=== PATIENT | female | born 1985 | race Caucasian/White ===

== ENCOUNTER 2018-04-05 09:42 | Emergency (ER) | payer MEDICAID, SELFPAY, OTHER ==
[2018-04-05] MEDS: NS 1,000 ML IV ×2 (10:11→11:32)
[2018-04-05 11:07] LABS: BASO % 0.2 % (0.0-1.0); EOS % 0.2 % (0.0-3.0); HEMATOCRIT 38.6 % (36.0-47.0); HEMOGLOBIN 13.5 g/dl (12.0-15.5); IMMATURE GRANULOCYTE % 0.4 % (0-3.0); LYMPH # 1.5 10^3/uL (1.5-4.5); LYMPH % 17.4 % (24.0-44.0); MEAN CORPUSCULAR HEMOGLOBIN 31.2 pg (27.0-33.0); MEAN CORPUSCULAR VOLUME 89.1 fl (80.0-96.0); MONO # 0.4 10^3/uL (0.0-0.8); MONO % 4.7 % (0.0-5.0); NEUTROPHILS # 6.5 10^3/uL (1.8-7.7); NEUTROPHILS % 77.1 % (36.0-66.0); PLATELET COUNT, AUTOMATED 235 10^3/uL (150-450); RED BLOOD COUNT 4.33 10^6/uL (4.00-5.40); RED CELL DISTRIBUTION WIDTH 12.3 % (11.5-14.5); WHITE BLOOD COUNT 8.5 10^3/uL (4.0-10.0)
[2018-04-05 11:10] LABS: CONTROL LINE HCG INT CTR LINE PRESENT; HCG, SERUM QUALITATIVE NEGATIVE (NEGATIVE)
[2018-04-05 11:19] LABS: ALBUMIN 4.1 GM/DL (3.2-5.2); ALBUMIN/GLOBULIN RATIO 1.05 (1.00-1.93); ALKALINE PHOSPHATASE 108 U/L (45-117); ALT/SGPT 24 U/L (12-78); ANION GAP 10 MEQ/L (8-16); AST/SGOT 15 U/L (7-37); BILIRUBIN,DIRECT 0.1 MG/DL (0.0-0.2); BILIRUBIN,TOTAL 0.7 MG/DL (0.2-1.0); BLOOD UREA NITROGEN 12 MG/DL (7-18); CARBON DIOXIDE LEVEL 22 MEQ/L (21-32); CHLORIDE LEVEL 111 MEQ/L (98-107); CREATININE FOR GFR 0.79 MG/DL (0.55-1.30); GLOMERULAR FILTRATION RATE > 60.0 (>60); GLUCOSE, FASTING 125 MG/DL (70-100); LIPASE 101 U/L (73-393); POTASSIUM SERUM 3.4 MEQ/L (3.5-5.1); SODIUM LEVEL 143 MEQ/L (136-145)
[2018-04-05] MEDS: ONDANSETRON 4MG/2ML VIAL (J2405) IV ×2 (11:30→11:31)
[2018-04-05] MEDS ORDERED: ISOVUE-370 76% 100ML VIAL (Q9967) As Ordered (11:37)
== END 2018-04-05 11:47 | disposition left against medical advice (07) ==
LOC: M ED 09:42
DX: R11.2 Nausea with vomiting, unspecified (principal); R19.7 Diarrhea, unspecified; F33.9 Major depressive disorder, recurrent, unspecified; Z79.899 Other long term (current) drug therapy
CPT/HCPCS: 83690

== ENCOUNTER → 2020-11-23 | Outpatient (REF) | payer OTHER ==
[~2020-11-23] MED LIST: ADVI200T PO; CELE10TA PO; CITA20TA6 PO; HYDR-3715 PO; ZOFR4SOL PO
== END ==
LOC: M LAB REF 11:31
PROVIDERS: ATTEND Surgery
DX: U07.1 COVID-19 (principal)

== ENCOUNTER 2020-12-21 19:07 | Inpatient (IN) | payer OTHER ==
[~2020-12-21] VITALS: Ht 167.6 cm; Wt 54.5 kg
[2020-12-21] MEDS ORDERED: NS 1,000 ML IV ONE (20:45)
[2020-12-21 21:29] LABS: BASO # 0.1 10^3/uL (0.0-0.2); BASO % 0.4 % (0.0-1.0); EOS # 0.1 10^3/uL (0.0-0.5); EOS % 0.6 % (0.0-3.0); HEMATOCRIT 33.1 % (36.0-47.0); HEMOGLOBIN 11.2 g/dl (12.0-15.5); LYMPH # 1.1 10^3/uL (1.5-5.0); LYMPH % 9.2 % (24.0-44.0); MEAN CORPUSCULAR HEMOGLOBIN 29.5 pg (27.0-33.0); MEAN CORPUSCULAR HGB CONC 33.8 g/dl (32.0-36.5); MEAN CORPUSCULAR VOLUME 87.1 fl (80.0-96.0); MONO % 8.1 % (2.0-8.0); NEUTROPHILS % 80.9 % (36.0-66.0); PLATELET COUNT, AUTOMATED 324 10^3/uL (150-450); WHITE BLOOD COUNT 12.3 10^3/uL (4.0-10.0)
[2020-12-21 21:47] LABS: ERYTHROCYTE SEDIMENTATION RATE 70 mm/hr (0-20)
[2020-12-21] MEDS ORDERED: VANCOMYCIN HCL 1,000 MG in IV FLUID PLACE HOLDER 1 EA IV ONE (21:50)
[2020-12-21] MEDS ORDERED: VANCOMYCIN HCL 1,000 MG, VIAL MATE ADAPTER 1 EACH in NS 250 ML IV ONE (22:00)
[2020-12-21 22:04] LABS: ALBUMIN 2.5 GM/DL (3.2-5.2); BILIRUBIN,DIRECT 0.2 MG/DL (0.0-0.2); BILIRUBIN,TOTAL 0.3 MG/DL (0.2-1.0); C REACTIVE PROTEIN QUANTITATIV 10.8 MG/DL (0.00-0.30); TOTAL PROTEIN 6.4 GM/DL (6.4-8.2)
--- NOTE | 2020-12-21 22:13 | REPVR ---
PROCEDURE INFORMATION: Exam: US Duplex Right Lower Extremity Veins, Limited Exam date and time: 12/21/2020 9:32 PM Age: 35 years old Clinical indication: Pain; Edema, localized and swelling (edema) of limb; Lower extremity, right; Leg, upper and leg, lower; Additional info: Cellulitis, swelling TECHNIQUE: Imaging protocol: Real-time Duplex ultrasound of the Right Lower Extremity with 2-D souza scale, color Doppler flow and spectral waveform analysis with image documentation. Limited exam was focused on the right lower extremity veins. COMPARISON: No relevant prior studies available. FINDINGS: Right deep veins: Unremarkable. The common femoral, femoral and popliteal veins are patent without thrombus. Normal Doppler waveforms. Normal compressibility and/or augmentation response. Right superficial veins: Unremarkable. Saphenofemoral junction is patent without thrombus. Soft tissues: Mild subcutaneous edema. IMPRESSION: No sonographic evidence of deep vein thrombosis. Electronically signed by: Eric Lovelace On 12/21/2020 22:13:41 PM
--- NOTE | 2020-12-21 22:19 | REPVR ---
PROCEDURE INFORMATION: Exam: US Right Non-Vascular Joint or Other Extremity Structure Exam date and time: 12/21/2020 9:15 PM Age: 35 years old Clinical indication: Pain; Lower leg; Right; Additional info: Cellulitis/ abscess TECHNIQUE: Imaging protocol: Right US joint or other nonvascular extremity structure or structures. Real-time ultrasound with image documentation. Limited study. Exam focused on the lower extremity in the region of clinical interest. COMPARISON: No relevant prior studies available. FINDINGS: Soft tissues: Severe, diffuse soft tissue swelling and subcutaneous edema. Approximately 2.1 x 0.6 x 0.8 cm loculated, complex subcutaneous collection along the medial aspect of the calf, apparently communicating with the skin surface. Mild associated hyperemia. IMPRESSION: Severe cellulitis with associated abscess formation, as described above. Electronically signed by: Eric Lovelace On 12/21/2020 22:19:17 PM
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
[2020-12-21] MEDS ORDERED: MAALOX 30 ML SUSP *UDC PO PRN (23:45)
[2020-12-21] MEDS ORDERED: ACETAMINOPHEN TAB 650MG DOSE (2X325MG) PO PRN (23:45)
[2020-12-21] MEDS ORDERED: MOM 30ML SUSPENSION UDC PO PRN (23:45)
[2020-12-21 23:52] LABS: AMPHETAMINES LEVEL URINE POSITIVE (NEGATIVE); BARBITURATES URINE NEGATIVE (NEGATIVE); BENZODIAZEPINES URINE NEGATIVE (NEGATIVE); CANNABINOIDS URINE NEGATIVE (NEGATIVE); COCAINE METABOLITE URINE NEGATIVE (NEGATIVE); METHADONE URINE NEGATIVE (NEGATIVE); OPIATES URINE POSITIVE (NEGATIVE); PHENCYCLIDINE URINE NEGATIVE (NEGATIVE)
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
[2020-12-22 01:04] LABS: RSV AMPLIFICATION NEGATIVE (NEGATIVE)
[2020-12-22] MEDS: HEPARIN SOD (PORCINE) 5000UNITS/ML 1ML VIAL/SYRINGE SC SCH ×3 (02:44→16:00)
[2020-12-22 03:22] VITALS: BP 121/84
[2020-12-22] MEDS: VANCOMYCIN HCL 750 MG, VIAL MATE ADAPTER 1 EACH in NS 250 ML IV SCH ×3 (05:42→21:47)
[2020-12-22 06:00] VITALS: BP 108/63
[2020-12-22 07:19] LABS: BASO % 0.4 % (0.0-1.0); EOS # 0.1 10^3/uL (0.0-0.5); EOS % 1.6 % (0.0-3.0); HEMATOCRIT 29.6 % (36.0-47.0); HEMOGLOBIN 9.9 g/dl (12.0-15.5); LYMPH # 1.4 10^3/uL (1.5-5.0); LYMPH % 16.6 % (24.0-44.0); MEAN CORPUSCULAR HEMOGLOBIN 29.7 pg (27.0-33.0); MEAN CORPUSCULAR HGB CONC 33.4 g/dl (32.0-36.5); MEAN CORPUSCULAR VOLUME 88.9 fl (80.0-96.0); MONO # 0.7 10^3/uL (0.0-0.8); MONO % 8.5 % (2.0-8.0); NEUTROPHILS # 5.9 10^3/uL (1.5-8.5); NEUTROPHILS % 72.3 % (36.0-66.0); PLATELET COUNT, AUTOMATED 265 10^3/uL (150-450); RED BLOOD COUNT 3.33 10^6/uL (4.00-5.40); WHITE BLOOD COUNT 8.1 10^3/uL (4.0-10.0)
[2020-12-22 07:43] LABS: ALBUMIN 2.1 GM/DL (3.2-5.2); ALT/SGPT 49 U/L (12-78); BILIRUBIN,TOTAL 0.2 MG/DL (0.2-1.0); BLOOD UREA NITROGEN 3 MG/DL (7-18); CALCIUM LEVEL 7.8 MG/DL (8.5-10.1); CARBON DIOXIDE LEVEL 27 MEQ/L (21-32); CHLORIDE LEVEL 104 MEQ/L (98-107); CREATININE FOR GFR 0.43 MG/DL (0.55-1.30); GLOMERULAR FILTRATION RATE > 60.0 (>60); GLUCOSE, FASTING 101 MG/DL (70-100); MAGNESIUM LEVEL 2.2 MG/DL (1.8-2.4); POTASSIUM SERUM 3.7 MEQ/L (3.5-5.1); SODIUM LEVEL 138 MEQ/L (136-145)
[2020-12-22 07:44] LABS: PERCENT SATURATION 7.7 % (13.2-45.0)
--- NOTE | 2020-12-22 08:05 | REP ---
INDICATION: swelling, site of IV drug injection. COMPARISON: None. TECHNIQUE: There are four views. FINDINGS: There is soft tissue edema over the dorsum. There is no radiopaque foreign body, calcification, fracture or dislocation. Mineralization and joint spaces otherwise are unremarkable. IMPRESSION: Soft tissue edema over the dorsum. Otherwise, negative right hand. <Electronically signed by Wilber Cyr > 12/22/20 0801
[2020-12-22 08:11] LABS: C REACTIVE PROTEIN QUANTITATIV 9.75 MG/DL (0.00-0.30)
[2020-12-22] MEDS: DOCUSATE SODIUM 100MG CAPSULE PO SCH ×2 (08:47→21:47)
[2020-12-22 14:00] VITALS: BP 109/63
--- NOTE | 2020-12-22 14:55 | IPNPDOC ---
Text Note Date of Service The patient was seen on 12/22/20. NOTE Subjective: Patient somnolent in the morning, I was not able to interview the patient Objective: GENERAL APPEARANCE: Somnolent female HEENT: no scleral icterus, no JVD, EOMI CARDIOVASCULAR: S1S2 LUNGS: CTA ABDOMEN: soft & not tender w palpitation MUSCULOSKELETAL: no cyanosis, +2 right leg nonpitting edema with erythema from the foot to proximal part of the tibia INTEGUMENT: Seborrheic keratosis on the face and scalp, multiple skin needle trace NEUROLOGICAL: cranial nerve function from 2-12 intact intact, follows commands, speech not dysarthric Assessment and plan Patient is 35 yo F with a hx polysubstance abuse, depression, anxiety, bipolar disorder, admitted to hospitalist service for management of R leg cellulitis with loculated collection 2/2 subcutaneous drug injection. Purulent Right leg cellulitis/abscess Ultrasound showed Severe cellulitis with associated abscess formation Surgical team will proceed with incision and drainage Wound culture showed gram-positive cocci in pairs and clusters, await blood culture Continue vancomycin IV Leukocytosis resolved Sedimentation rate of 70 R hand swelling, dorsum site of injection X-ray showed Soft tissue edema over the dorsum. Otherwise, negative right hand. Normocytic anemia Most likely secondary to anemia of chronic diseases Iron of 18, will give iron supplementation B12, folate pending Polysubstance abuse Social service Await hepatitis panel. HIV screen VS,Jacquie, I+O VS, Jacquie, I+O Laboratory Tests 12/21/20 21:03 12/22/20 07:06 Vital Signs Date Time Temp Pulse Resp B/P (MAP) Pulse Ox O2 Delivery O2 Flow Rate FiO2 12/22/20 06:00 97.8 103 18 108/63 (78) 98 Room Air I&O- Last 24 Hours up to 6 AM 12/22/20 05:59 Intake Total 1270 ml Output Total 0 ml Balance 1270 ml LEEROY ROGERS DO Dec 22, 2020 14:55
[2020-12-22] MEDS: IRON POLYSAC (NIFEREX) 150 MG CAP PO SCH (16:10)
[2020-12-22] MEDS ORDERED: EPINEPHrine INJ 1 MG/ML 1ML AMP As Ordered ONE (19:35)
[2020-12-22] MEDS ORDERED: LIDOCAINE 1% MDV 20ML VIAL As Ordered ONE (19:35)
[2020-12-22 22:00] VITALS: BP 106/63
[2020-12-23] MEDS: VANCOMYCIN HCL 750 MG, VIAL MATE ADAPTER 1 EACH in NS 250 ML IV SCH (05:28)
[2020-12-23 06:00] VITALS: BP 112/72
[2020-12-23 06:24] LABS: BASO % 0.6 % (0.0-1.0); EOS # 0.2 10^3/uL (0.0-0.5); EOS % 2.3 % (0.0-3.0); HEMOGLOBIN 9.6 g/dl (12.0-15.5); LYMPH # 1.8 10^3/uL (1.5-5.0); LYMPH % 25.1 % (24.0-44.0); MEAN CORPUSCULAR HEMOGLOBIN 29.4 pg (27.0-33.0); MONO # 0.6 10^3/uL (0.0-0.8); MONO % 8.4 % (2.0-8.0); NEUTROPHILS # 4.5 10^3/uL (1.5-8.5); NEUTROPHILS % 62.6 % (36.0-66.0); PLATELET COUNT, AUTOMATED 294 10^3/uL (150-450); RED BLOOD COUNT 3.26 10^6/uL (4.00-5.40); WHITE BLOOD COUNT 7.3 10^3/uL (4.0-10.0)
[2020-12-23 06:55] LABS: ALT/SGPT 48 U/L (12-78); BILIRUBIN,TOTAL 0.1 MG/DL (0.2-1.0); BLOOD UREA NITROGEN 7 MG/DL (7-18); CALCIUM LEVEL 8.1 MG/DL (8.5-10.1); CARBON DIOXIDE LEVEL 27 MEQ/L (21-32); CHLORIDE LEVEL 106 MEQ/L (98-107); CREATININE FOR GFR 0.47 MG/DL (0.55-1.30); GLOMERULAR FILTRATION RATE > 60.0 (>60); GLUCOSE, FASTING 95 MG/DL (70-100); MAGNESIUM LEVEL 1.9 MG/DL (1.8-2.4); POTASSIUM SERUM 4.1 MEQ/L (3.5-5.1); SODIUM LEVEL 139 MEQ/L (136-145); TOTAL PROTEIN 5.6 GM/DL (6.4-8.2)
[2020-12-23] MEDS: HEPARIN SOD (PORCINE) 5000UNITS/ML 1ML VIAL/SYRINGE SC SCH ×2 (08:00)
[2020-12-23] MEDS: IRON POLYSAC (NIFEREX) 150 MG CAP PO SCH (09:00)
[2020-12-23] MEDS: DOCUSATE SODIUM 100MG CAPSULE PO SCH (09:00)
[2020-12-23] MEDS ORDERED: LORazepam 1 MG TAB PO PRN (10:05)
--- NOTE | 2020-12-23 10:53 | ROOPDOC ---
[facility] Report Of Operation Report of Operation DATE OF PROCEDURE: 12/22/20 PREPROCEDURE DIAGNOSES: right medial calf/lower leg abscess . POSTPROCEDURE DIAGNOSES: Same. PROCEDURE: Incision and drainage right lower leg abscess. SURGEON: Jerad Parmar MD CORRESPONDENCE DICTATOR: ANESTHESIA: local anesthesia. ESTIMATED BLOOD LOSS: Approximately 10 mL. COMPLICATIONS: none. REMARKS: 35-year-old female who has been injecting heroin on her lower leg admitted for extensive cellulitis and right leg swelling with a focus of induration and abscess on the right medial calf area where she was injecting heroin.. PROCEDURE NOTE: Bedside incision and drainage was performed. This small pocket of abscess. 1/2 inch plain packing placed.. DESCRIPTION OF PROCEDURE: . JERAD PARMAR MD Dec 23, 2020 10:53
--- NOTE | 2020-12-23 10:54 | CR.PDOC ---
General Surgery Consultation Date of Consultation 12/22/20 History and Physical CONSULT REPORT FOR: hospitalist service REASON FOR CONSULTATION: leg abscess HISTORY OF PRESENT ILLNESS: PAST MEDICAL HISTORY: 1. . PAST SURGICAL HISTORY: INCLUDES: 1. . PREVIOUS ANESTHESIA REACTIONS: ALLERGIES: Please see below. FAMILY HISTORY: . HOME MEDICATIONS: Please see below. REVIEW OF SYSTEMS: GENERAL: [Denies chills, reports weight gain, reports feeling febrile yesterday]. HEENT: [Denies blurred vision and double vision. Denies ear symptoms. Denies hoarseness]. NECK: Denies any neck pain]. CARDIOVASCULAR: [Denies chest pain and palpitations]. MUSCULOSKELETAL: [Denies arthralgias, back pain and thrombophlebitis]. SKIN: [Denies rash]. NEUROLOGIC: [Denies headache, stroke and transient ischemic attack]. PSYCHIATRIC: [Denies anxiety and depression]. ENDOCRINE: [Denies thyroid disease]. HEMATOLOGY/ONCOLOGY: [Denies bleeding or clotting disorder]. HEART: [Denies any chest pains, palpitations, paroxysmal dyspnea, orthopnea]. PULMONARY: [Denies chronic cough, dyspnea and wheezing]. GASTROINTESTINAL: [Denies rectal bleeding, family history of colon cancer, constipation, diarrhea, dysphagia, heartburn and jaundice]. GENITOURINARY: [Denies dysuria, frequency, hematuria and nocturia]. ENDOCRINE: [Denies polydipsia, polyphagia, polyuria, heat or cold intolerance]. INFECTIOUS: [Denies any recent upper respiratory tract infection, UTI, need for use of antibiotics]. NUTRITION: [Reports good appetite]. PHYSICAL EXAMINATION: VITALS SIGNS: Please see below. GENERAL APPEARANCE:[Patient seen, laying in bed, awake, alert, and oriented. Comfortable, in no acute distress]. SKIN: [Warm and moist]. HEENT: [Normocephalic, atraumatic. [place] palpebral conjunctiva, anicteric sclerae. Lips and mucosa appear moist]. NECK: [Supple, no thyromegaly. No obvious jugular venous distention]. LUNGS: [Clear to auscultation bilaterally. No wheezing appreciated]. HEART: [No chest wall abnormalities. Regular rate and rhythm with no murmurs appreciated]. ABDOMEN: Abdomen is , soft, . [No hepatosplenomegaly. No umbilical or groin herniations, nondistended. No noticeable rebound or guarding. No grimacing with palpation. No rebound tenderness. No masses appreciated]. EXTREMITIES: [Extremities have no deformities. No edema identified] ANCILLARIES: . LABORATORY DATA: Please see below. IMAGING STUDIES: . IMPRESSION AND PLAN: Right lower leg abscess I&D performed at the bedside.. Vital Signs Vital Signs Date Time Temp Pulse Resp B/P (MAP) Pulse Ox O2 Delivery O2 Flow Rate FiO2 12/23/20 06:00 97.4 87 16 112/72 (85) 100 Room Air I&Os I&O- Last 24 Hours up to 6 AM 12/23/20 06:00 Intake Total 1945 ml Output Total 1300 ml Balance 645 ml Laboratory Data Labs 24H Laboratory Tests 2 12/22/20 12:46: Vancomycin Level Trough 10.0 12/23/20 05:21: Immature Granulocyte % (Auto) 1.0, Neutrophils (%) (Auto) 62.6, Lymphocytes (%) (Auto) 25.1, Monocytes (%) (Auto) 8.4H, Eosinophils (%) (Auto) 2.3, Basophils (%) (Auto) 0.6, Neutrophils # (Auto) 4.5, Lymphocytes # (Auto) 1.8, Monocytes # (Auto) 0.6, Eosinophils # (Auto) 0.2, Basophils # (Auto) 0.0, Nucleated Red Blood Cells % (auto) 0.0, Anion Gap 6L, Glomerular Filtration Rate > 60.0, Calcium Level 8.1L, Magnesium Level 1.9, Total Bilirubin 0.1L, Aspartate Amino Transf (AST/SGOT) 61H, Alanine Aminotransferase (ALT/SGPT) 48, Alkaline Phosphatase 102, Total Protein 5.6L, Albumin 2.0L, Albumin/Globulin Ratio 0.6L 12/23/20 05:30: Methicillin-Resist S.aureus DNA PCR DETECTEDA CBC/BMP Laboratory Tests 12/23/20 05:21 Microbiology Microbiology 12/21/20 Blood Culture - Preliminary, Resulted No growth after 24 hours . All specim... 12/21/20 Blood Culture - Preliminary, Resulted No growth after 24 hours . All specim... 12/21/20 Gram Stain - Final, Resulted 12/21/20 Wound Culture - Preliminary, Resulted Streptococcus Pyogenes Grp A Staphylococcus Aureus Home Medications No Active Prescriptions or Reported Meds Allergies Coded Allergies: No Known Allergies (Unverified , 12/21/20) RAGHU ROSS MD Dec 23, 2020 10:54
--- NOTE | 2020-12-23 10:56 | IPNPDOC ---
Text Note Date of Service The patient was seen on 12/23/20. NOTE I rechecked on the patient's wounds today. Remove her dressings. There is puru lent fluid freely draining from the opening now. This seems to be more superior and lateral where it is coming off from. There is much better improvement of the swelling and the erythema has markedly proceeded. There is still considerable swelling on the foot and ankle but the leg swelling has also improved. Plan Continue leg elevation. Light packing to the opening change daily. Can go home when stable. VS,Fishbone, I+O VS, Fishbone, I+O Laboratory Tests 12/23/20 05:21 Vital Signs Date Time Temp Pulse Resp B/P (MAP) Pulse Ox O2 Delivery O2 Flow Rate FiO2 12/23/20 06:00 97.4 87 16 112/72 (85) 100 Room Air I&O- Last 24 Hours up to 6 AM 12/23/20 06:00 Intake Total 1945 ml Output Total 1300 ml Balance 645 ml RAGHU ROSS MD Dec 23, 2020 10:55
[2020-12-23] MEDS ORDERED: DOXY100C PO (13:47)
--- NOTE | 2020-12-23 14:03 | DS.PDOC ---
Discharge Summary General Date of Admission Dec 21, 2020 at 23:44 Date of Discharge 12/23/20 Discharge Summary PROCEDURES PERFORMED DURING STAY: [None]. ADMITTING DIAGNOSES: Purulent Right leg cellulitis/abscess R hand swelling, dorsum Normocytic anemia Polysubstance abuse DISCHARGE DIAGNOSES: Purulent Right leg cellulitis/abscess R hand swelling, dorsum Normocytic anemia Polysubstance abuse COMPLICATIONS/CHIEF COMPLAINT: Abscess Of Leg,Cellulitis,Hyponatremia. HISTORY OF PRESENT ILLNESS: Patient is 35 yo F with a hx polysubstance abuse, de pression, anxiety, bipolar disorder, admitted to hospitalist service for management of R leg cellulitis with loculated collection 2/2 subcutaneous drug injection. HOSPITAL COURSE: Patient left the hospital AMA today DISCHARGE MEDICATIONS: Please see below. ALLERGIES: Please see below. PHYSICAL EXAMINATION ON DISCHARGE: VITAL SIGNS: Please see below. GENERAL: HEENT: NECK: CARDIOVASCULAR EXAMINATION: RESPIRATORY EXAMINATION: ABDOMINAL EXAMINATION: EXTREMITIES: SKIN: NEUROLOGICAL EXAMINATION: PSYCHIATRIC EXAMINATION: LABORATORY DATA: Please see below. IMAGING: PROGNOSIS: ACTIVITY: [As tolerated]. DIET: DISCHARGE PLAN: DISPOSITION: Against Medical Advice. DISCHARGE INSTRUCTIONS: 1. . ITEMS TO FOLLOWUP ON ON OUTPATIENT: 1. . DISCHARGE CONDITION: [Stable]. TIME SPENT ON DISCHARGE: Greater than minutes. Vital Signs/I&Os Vital Signs Date Time Temp Pulse Resp B/P (MAP) Pulse Ox O2 Delivery O2 Flow Rate FiO2 12/23/20 06:00 97.4 87 16 112/72 (85) 100 Room Air I&O- Last 24 Hours up to 6 AM 12/23/20 06:00 Intake Total 1945 ml Output Total 1300 ml Balance 645 ml Laboratory Data Labs 24H Laboratory Tests 2 12/23/20 05:21: Immature Granulocyte % (Auto) 1.0, Neutrophils (%) (Auto) 62.6, Lymphocytes (%) (Auto) 25.1, Monocytes (%) (Auto) 8.4H, Eosinophils (%) (Auto) 2.3, Basophils (%) (Auto) 0.6, Neutrophils # (Auto) 4.5, Lymphocytes # (Auto) 1.8, Monocytes # (Auto) 0.6, Eosinophils # (Auto) 0.2, Basophils # (Auto) 0.0, Nucleated Red Blood Cells % (auto) 0.0, Anion Gap 6L, Glomerular Filtration Rate > 60.0, Calcium Level 8.1L, Magnesium Level 1.9, Total Bilirubin 0.1L, Aspartate Amino Transf (AST/SGOT) 61H, Alanine Aminotransferase (ALT/SGPT) 48, Alkaline Phosphatase 102, Total Protein 5.6L, Albumin 2.0L, Albumin/Globulin Ratio 0.6L 12/23/20 05:30: Methicillin-Resist S.aureus DNA PCR DETECTEDA CBC/BMP Laboratory Tests 12/23/20 05:21 Microbiology Microbiology 12/21/20 Blood Culture - Preliminary, Resulted No growth after 24 hours . All specim... 12/21/20 Blood Culture - Preliminary, Resulted No growth after 24 hours . All specim... 12/21/20 Gram Stain - Final, Resulted 12/21/20 Wound Culture - Preliminary, Resulted Streptococcus Pyogenes Grp A Staphylococcus Aureus Discharge Medications Scheduled Doxycycline Hyclate (Doxycycline Hyclate) 100 Mg Capsule, 100 MG PO BID Allergies Coded Allergies: No Known Allergies (Unverified , 12/21/20) LEEROY ROGERS DO Dec 23, 2020 14:03
[2020-12-24 12:17] LABS: FOLATE 16.6 NG/ML (>5.4)
[2020-12-24 12:56] LABS: HEPATITIS A ANTIBODY IGM NEGATIVE (NEGATIVE); HEPATITIS B CORE ANTIBODY IGM NEGATIVE (NEGATIVE); HEPATITIS B SURFACE ANTIGEN NEGATIVE (NEGATIVE); HIV 1&2 SCREEN CENTAUR NEGATIVE (NEGATIVE)
[2020-12-24 13:12] LABS: HEPATITIS C VIRUS ABY INDEX > 11.0 INDEX (<0.8)
== END 2020-12-23 11:45 | disposition left against medical advice (07) | DRG 383 ==
LOC: M ED 19:07 → EEVIPCON 23:44 → M ED INP 23:44 → ENRESERV 12-22 02:58 → M MSPAV 12-22 03:22
PROVIDERS: ADMIT Family Medicine; ATTEND Internal Medicine
PROC: 0H9KXZZ Drainage of Right Lower Leg Skin, External Approach (ICD-10-PCS; principal; 2020-12-22)
DX: L03.115 Cellulitis of right lower limb (principal); F11.10 Opioid abuse, uncomplicated; D64.9 Anemia, unspecified; M79.89 Other specified soft tissue disorders; F31.9 Bipolar disorder, unspecified; F41.9 Anxiety disorder, unspecified; F17.200 Nicotine dependence, unspecified, uncomplicated

== ENCOUNTER 2020-12-29 23:50 | Emergency (ER) | payer OTHER ==
[~2020-12-29] VITALS: Ht 167.6 cm; Wt 54.5 kg
[~2020-12-29 23:50] MED LIST changes: +DOXY100C PO
[2020-12-30 00:58] LABS: BASO % 0.4 % (0.0-1.0); EOS # 0.2 10^3/uL (0.0-0.5); EOS % 1.7 % (0.0-3.0); HEMATOCRIT 35.6 % (36.0-47.0); HEMOGLOBIN 11.3 g/dl (12.0-15.5); LYMPH # 1.9 10^3/uL (1.5-5.0); MEAN CORPUSCULAR HEMOGLOBIN 29.5 pg (27.0-33.0); MEAN CORPUSCULAR HGB CONC 31.7 g/dl (32.0-36.5); MONO # 0.6 10^3/uL (0.0-0.8); MONO % 6.3 % (2.0-8.0); NEUTROPHILS # 6.3 10^3/uL (1.5-8.5); NEUTROPHILS % 70.2 % (36.0-66.0); PLATELET COUNT, AUTOMATED 409 10^3/uL (150-450); RED BLOOD COUNT 3.83 10^6/uL (4.00-5.40)
[2020-12-30] MEDS ORDERED: DALBAVANCIN 1,500 MG in D5W 250 ML IV ONE (01:15)
[2020-12-30 02:45] VITALS: BP 112/60
== END 2020-12-30 03:13 | disposition home or self-care (01) ==
LOC: M ED 23:50
DX: L03.115 Cellulitis of right lower limb (principal); F17.200 Nicotine dependence, unspecified, uncomplicated; F19.10 Other psychoactive substance abuse, uncomplicated
CPT/HCPCS: 80047; 85025; 96365; 99284; J0875

== ENCOUNTER → 2022-07-31 | Outpatient (REF) | payer MEDICAID ==
[~2022-07-31] MED LIST changes: -DOXY100C PO; +DOXY100C3 PO; +LAMO200T3 PO; +METH-1022 PO; +RISP-7 PO; +SERT50TA29 PO
[2022-07-31 17:39] LABS: HEMATOCRIT 34.1 % (36.0-47.0); HEMOGLOBIN 11.4 g/dl (12.0-15.5); MEAN CORPUSCULAR HEMOGLOBIN 30.4 pg (27.0-33.0); MEAN CORPUSCULAR HGB CONC 33.4 g/dl (32.0-36.5); MEAN CORPUSCULAR VOLUME 90.9 fl (80.0-96.0); PLATELET COUNT, AUTOMATED 278 10^3/uL (150-450); RED BLOOD COUNT 3.75 10^6/uL (4.00-5.40); WHITE BLOOD COUNT 6.9 10^3/uL (4.0-10.0)
[2022-07-31 18:13] LABS: ALBUMIN 3.7 GM/DL (3.2-5.2); ALT/SGPT 139 U/L (12-78); BILIRUBIN,DIRECT 0.2 MG/DL (0.0-0.2); BILIRUBIN,TOTAL 0.4 MG/DL (0.2-1.0); BLOOD UREA NITROGEN 12 MG/DL (7-18); CALCIUM LEVEL 9.2 MG/DL (8.5-10.1); CARBON DIOXIDE LEVEL 26 MEQ/L (21-32); CHLORIDE LEVEL 105 MEQ/L (98-107); CREATININE FOR GFR 0.67 MG/DL (0.55-1.30); GLOMERULAR FILTRATION RATE > 60.0 (>60); GLUCOSE, FASTING 102 MG/DL (70-100); SODIUM LEVEL 137 MEQ/L (136-145); TOTAL PROTEIN 7.5 GM/DL (6.4-8.2)
[2022-07-31 18:43] LABS: HEPATITIS B SURFACE ANTIBODY POSITIVE (POSITIVE)
[2022-07-31 18:53] LABS: HEPATITIS B SURFACE ANTIGEN NEGATIVE (NEGATIVE)
[2022-07-31 19:23] LABS: HIV 1&2 SCREEN CENTAUR NEGATIVE (NEGATIVE)
[2022-07-31 20:21] LABS: HEPATITIS C VIRUS ABY INDEX > 11.0 INDEX (<0.8)
[2022-08-02 23:07] LABS: HEPATITIS C QUANTITATION 141000 IU/mL (.)
== END ==
LOC: M LAB REF 16:40
PROVIDERS: ATTEND Nurse Practitioner Family
DX: B19.20 Unspecified viral hepatitis C without hepatic coma (principal); Z11.9 Encounter for screening for infectious and parasitic diseases, unspecified

== ENCOUNTER 2023-06-10 18:08 | Emergency (ER) | payer MEDICAID, OTHER, SELFPAY ==
[~2023-06-10] VITALS: Ht 167.6 cm; Wt 51.9 kg
[2023-06-10 18:08] VITALS: BP 128/77; TEMP 97.8; O2SAT 100
[2023-06-10 22:22] LABS: BASO % 0.3 % (0.0-1.0); EOS # 0.1 10^3/uL (0.0-0.5); EOS % 0.6 % (0.0-3.0); HEMATOCRIT 35.4 % (36.0-47.0); HEMOGLOBIN 12.1 g/dl (12.0-15.5); LYMPH # 1.6 10^3/uL (1.5-5.0); LYMPH % 14.1 % (24.0-44.0); MEAN CORPUSCULAR HEMOGLOBIN 29.7 pg (27.0-33.0); MEAN CORPUSCULAR HGB CONC 34.2 g/dl (32.0-36.5); MEAN CORPUSCULAR VOLUME 86.8 fl (80.0-96.0); NEUTROPHILS # 8.8 10^3/uL (1.5-8.5); NEUTROPHILS % 75.7 % (36.0-66.0); PLATELET COUNT, AUTOMATED 259 10^3/uL (150-450); RED BLOOD COUNT 4.08 10^6/uL (4.00-5.40); WHITE BLOOD COUNT 11.6 10^3/uL (4.0-10.0)
[2023-06-10 22:46] LABS: BLOOD UREA NITROGEN 12 MG/DL (9-23); CALCIUM LEVEL 8.3 MG/DL (8.5-10.1); CARBON DIOXIDE LEVEL 25 MMOL/L (20-31); CHLORIDE LEVEL 102 MMOL/L (98-107); CREATININE FOR GFR 0.56 MG/DL (0.55-1.30); GLOMERULAR FILTRATION RATE > 60.0 (>60); GLUCOSE, FASTING 109 MG/DL (60-100); POTASSIUM SERUM 3.6 MMOL/L (3.5-5.1); SODIUM LEVEL 136 MMOL/L (136-145)
[2023-06-10 22:57] LABS: ERYTHROCYTE SEDIMENTATION RATE 47 mm/hr (0-20)
[2023-06-10] MEDS: KETOROLAC 30 MG/ML 1ML VIAL IV ONE (23:51)
[2023-06-10] MEDS: DALBAVANCIN 1,500 MG in D5W 250 ML IV ONE (23:52)
== END 2023-06-11 00:41 | disposition home or self-care (01) ==
LOC: M ED 18:08
DX: R21 Rash and other nonspecific skin eruption (principal); F17.200 Nicotine dependence, unspecified, uncomplicated; F19.10 Other psychoactive substance abuse, uncomplicated
CPT/HCPCS: 80048; 83605; 85025; 85652; 86140; 87040; 96365; 96375; 99282; J0875; J1885

== ENCOUNTER 2024-05-04 17:48 | Inpatient (IN) | payer OTHER, SELFPAY ==
[~2024-05-04] VITALS: Ht 170.2 cm; Wt 49.0 kg
[2024-05-04] MEDS: NS 1,000 ML IV SCH (00:47)
[~2024-05-04 17:48] MED LIST changes: -RISP-7 PO; +RISP0.5T82 PO
[2024-05-04] MEDS: ACETAMINOPHEN 325 MG TAB PO ONE (18:28)
[2024-05-04 20:27] LABS: BASO % 0.3 % (0.0-1.0); HEMATOCRIT 35.3 % (36.0-47.0); HEMOGLOBIN 11.7 g/dl (12.0-15.5); LYMPH # 0.9 10^3/uL (1.5-5.0); LYMPH % 9.4 % (24.0-44.0); MEAN CORPUSCULAR HEMOGLOBIN 29.3 pg (27.0-33.0); MEAN CORPUSCULAR HGB CONC 33.1 g/dl (32.0-36.5); MEAN CORPUSCULAR VOLUME 88.5 fl (80.0-96.0); MONO # 0.7 10^3/uL (0.0-0.8); MONO % 7.9 % (2.0-8.0); NEUTROPHILS # 7.7 10^3/uL (1.5-8.5); NEUTROPHILS % 81.9 % (36.0-66.0); PLATELET COUNT, AUTOMATED 240 10^3/uL (150-450); RED BLOOD COUNT 3.99 10^6/uL (4.00-5.40); WHITE BLOOD COUNT 9.4 10^3/uL (4.0-10.0)
[2024-05-04] MEDS: PIPERACILLIN/TAZOBACTAM SOD 4.5 GM in D5W MINI-BAG PLUS 50 ML IV ONE (20:40)
[2024-05-04] MEDS: IBUPROFEN 600MG TAB PO ONE (20:41)
[2024-05-04 20:50] LABS: ALBUMIN 3.3 G/DL (3.2-5.2); ALKALINE PHOSPHATASE 117 U/L (46-116); ALT/SGPT 190 U/L (7.0-40); AST/SGOT 123 U/L (<34); BILIRUBIN,DIRECT 0.2 MG/DL (<0.4); BILIRUBIN,TOTAL 0.5 MG/DL (0.3-1.2); BLOOD UREA NITROGEN 9 MG/DL (9-23); CALCIUM LEVEL 8.5 MG/DL (8.5-10.1); CARBON DIOXIDE LEVEL 24 MMOL/L (20-31); CHLORIDE LEVEL 101 MMOL/L (98-107); CREATININE FOR GFR 0.51 MG/DL (0.55-1.30); GLOMERULAR FILTRATION RATE > 60.0 (>60); GLUCOSE, FASTING 109 MG/DL (60-100); POTASSIUM SERUM 3.6 MMOL/L (3.5-5.1); SODIUM LEVEL 133 MMOL/L (136-145); TOTAL PROTEIN 7.6 G/DL (5.7-8.2)
[2024-05-04] MEDS ORDERED: VANCOMYCIN HCL 1,000 MG in IV FLUID PLACE HOLDER 1 EA IV SCH (21:55)
[2024-05-04 22:02] LABS: ERYTHROCYTE SEDIMENTATION RATE 56 mm/hr (0-20)
[2024-05-04 22:14] LABS: BARBITURATES URINE NEGATIVE (NEGATIVE); BENZODIAZEPINES URINE NEGATIVE (NEGATIVE); COCAINE METABOLITE URINE NEGATIVE (NEGATIVE); METHADONE URINE NEGATIVE (NEGATIVE); OPIATES URINE NEGATIVE (NEGATIVE); PHENCYCLIDINE URINE NEGATIVE (NEGATIVE)
[2024-05-04 22:18] LABS: AMPHETAMINES LEVEL URINE POSITIVE (NEGATIVE); CANNABINOIDS URINE POSITIVE (NEGATIVE)
[2024-05-04] MEDS ORDERED: LORazepam 2 MG TAB PO PRN (22:20)
[2024-05-04] MEDS ORDERED: MOM 30ML SUSPENSION UDC PO PRN (22:20)
[2024-05-04] MEDS ORDERED: MAALOX 30 ML SUSP *UDC PO PRN (22:20)
[2024-05-04 22:42] LABS: ETHYL ALCOHOL (ETHANOL) 0.005 % (0.000-0.010); MAGNESIUM LEVEL 1.7 MG/DL (1.8-2.4)
[2024-05-04 22:46] LABS: Trichomonas vaginalis (AMP) POSITIVE (NEGATIVE)
[2024-05-04] MEDS: VANCOMYCIN HCL 1,000 MG, VIAL MATE ADAPTER 1 EACH in D5W 250 ML IV ONE (22:51)
[2024-05-04 22:57] LABS: HEPATITIS B SURFACE ANTIGEN NEGATIVE (NEGATIVE)
[2024-05-04 23:11] LABS: HIV 1&2 SCREEN NEGATIVE (NEGATIVE)
[2024-05-04 23:19] LABS: HEPATITIS B CORE ANTIBODY IGM NEGATIVE (NEGATIVE)
[2024-05-04 23:21] LABS: GC DNA AMPLIFICATION NEGATIVE (NEGATIVE)
[2024-05-04 23:22] LABS: HCG, SERUM QUALITATIVE NEGATIVE (NEGATIVE)
[2024-05-04 23:24] LABS: HEPATITIS C VIRUS ABY INDEX > 11.00 INDEX (<0.8)
[2024-05-05] VITALS (7 sets, daily range): BP systolic 98–138; BP diastolic 62–78; TEMP 97.9–100.6; O2SAT 95–100
[2024-05-05] MEDS: MAG SULF 1GM/100ML (MAG RUN) 1 GM in IV 1 EA IV ONE (01:11)
[2024-05-05] MEDS: metroNIDAZOLE 500 MG in IV 1 EA IV SCH (02:13)
[2024-05-05] MEDS: PIPERACILLIN/TAZOBACTAM SOD 4.5 GM in D5W MINI-BAG PLUS 50 ML IV SCH (03:46)
[2024-05-05] MEDS: VANCOMYCIN HCL 750 MG, VIAL MATE ADAPTER 1 EACH in D5W 250 ML IV SCH (05:38)
[2024-05-05] MEDS: ACETAMINOPHEN TAB 650MG DOSE (2X325MG) PO PRN (05:38)
[2024-05-05 07:55] LABS: HEMATOCRIT 31.8 % (36.0-47.0); HEMOGLOBIN 10.7 g/dl (12.0-15.5); MEAN CORPUSCULAR HEMOGLOBIN 29.4 pg (27.0-33.0); MEAN CORPUSCULAR HGB CONC 33.6 g/dl (32.0-36.5); MEAN CORPUSCULAR VOLUME 87.4 fl (80.0-96.0); PLATELET COUNT, AUTOMATED 202 10^3/uL (150-450); RED BLOOD COUNT 3.64 10^6/uL (4.00-5.40); WHITE BLOOD COUNT 7.2 10^3/uL (4.0-10.0)
[2024-05-05] MEDS ORDERED: IBUPROFEN 800 MG TAB PO PRN (07:55)
[2024-05-05 08:00] LABS: ERYTHROCYTE SEDIMENTATION RATE 42 mm/hr (0-20)
[2024-05-05] MEDS ORDERED: KETOROLAC 30 MG/ML 1ML VIAL IV PRN (08:05)
[2024-05-05 08:08] LABS: INR 1.32; PARTIAL THROMBOPLASTIN TIME 35.3 SECONDS (24.8-34.2)
[2024-05-05] MEDS ORDERED: HOME MED LIST COMPLETE! XX SCH (08:15)
[2024-05-05 08:30] LABS: PROCALCITONIN 0.17 ng/ml
[2024-05-05 08:32] LABS: ALBUMIN 2.7 G/DL (3.2-5.2); ALKALINE PHOSPHATASE 105 U/L (46-116); ALT/SGPT 155 U/L (7.0-40); AST/SGOT 89 U/L (<34); BILIRUBIN,TOTAL 0.5 MG/DL (0.3-1.2); BLOOD UREA NITROGEN 7 MG/DL (9-23); CALCIUM LEVEL 8.1 MG/DL (8.5-10.1); CARBON DIOXIDE LEVEL 26 MMOL/L (20-31); CHLORIDE LEVEL 103 MMOL/L (98-107); CREATININE FOR GFR 0.53 MG/DL (0.55-1.30); GLOMERULAR FILTRATION RATE > 60.0 (>60); GLUCOSE, FASTING 154 MG/DL (60-100); POTASSIUM SERUM 3.6 MMOL/L (3.5-5.1); SODIUM LEVEL 135 MMOL/L (136-145); TOTAL PROTEIN 6.6 G/DL (5.7-8.2)
[2024-05-05] MEDS: THIAMINE 100 MG TAB PO SCH (08:33)
[2024-05-05] MEDS: FOLIC ACID 1MG TAB PO SCH (08:33)
[2024-05-05] MEDS: MULTIVITAMINS/MINERALS THERAP 1 TAB PO SCH (08:33)
[2024-05-05] MEDS: DOCUSATE SODIUM 100MG CAPSULE PO SCH (08:33)
[2024-05-05] MEDS ORDERED: DOXY100T PO (10:00)
[2024-05-05] MEDS ORDERED: metroNIDAZOLE (FLAGYL) 500MG TABLET PO ONE (11:00)
[2024-05-05] MEDS: metroNIDAZOLE (FLAGYL) 500MG TABLET PO SCH (11:46)
[2024-05-05] MEDS ORDERED: METR-265 PO (15:27)
[2024-05-05] MEDS ORDERED: CEFTAROLINE FOSAMIL 600 MG in D5W MINI-BAG PLUS 50 ML IV SCH (16:00)
[2024-05-09 14:08] LABS: HCV RNA log10 4.22 Log IU/mL (NOT DETECTED)
== END 2024-05-05 15:26 | disposition left against medical advice (07) | DRG 720 ==
LOC: M ED 17:48 → M ED INP 22:19 → M MSPAV 05-05 00:45
PROVIDERS: ADMIT Preventive Medicine Undersea and Hyperbaric Medicine; ATTEND Internal Medicine Nephrology
DX: A41.9 Sepsis, unspecified organism (principal); K73.9 Chronic hepatitis, unspecified; E83.42 Hypomagnesemia; F17.200 Nicotine dependence, unspecified, uncomplicated; L03.115 Cellulitis of right lower limb; A59.01 Trichomonal vulvovaginitis; B96.20 Unspecified Escherichia coli [E. coli] as the cause of diseases classified elsewhere; F31.9 Bipolar disorder, unspecified; Z59.00 Homelessness unspecified; R74.01 Elevation of levels of liver transaminase levels

== ENCOUNTER → 2024-06-23 | Outpatient (REF) | payer OTHER, MEDICAID ==
[~2024-06-23] MED LIST changes: +DOXY100T PO; +METR-265 PO
[2024-06-23 17:39] LABS: BASO % 0.4 % (0.0-1.0); EOS # 0.1 10^3/uL (0.0-0.5); EOS % 1.3 % (0.0-3.0); HEMATOCRIT 43.1 % (36.0-47.0); HEMOGLOBIN 14.2 g/dl (12.0-15.5); LYMPH # 2.2 10^3/uL (1.5-5.0); LYMPH % 28.9 % (24.0-44.0); MEAN CORPUSCULAR HEMOGLOBIN 29.8 pg (27.0-33.0); MEAN CORPUSCULAR HGB CONC 32.9 g/dl (32.0-36.5); MEAN CORPUSCULAR VOLUME 90.4 fl (80.0-96.0); MONO # 0.4 10^3/uL (0.0-0.8); MONO % 4.8 % (2.0-8.0); NEUTROPHILS # 4.9 10^3/uL (1.5-8.5); NEUTROPHILS % 64.3 % (36.0-66.0); PLATELET COUNT, AUTOMATED 335 10^3/uL (150-450); RED BLOOD COUNT 4.77 10^6/uL (4.00-5.40); WHITE BLOOD COUNT 7.6 10^3/uL (4.0-10.0)
[2024-06-23 18:13] LABS: HEPATITIS B SURFACE ANTIGEN NEGATIVE (NEGATIVE)
[2024-06-23 18:26] LABS: HIV 1&2 SCREEN NEGATIVE (NEGATIVE)
[2024-06-23 18:27] LABS: ALBUMIN 3.8 G/DL (3.2-5.2); ALKALINE PHOSPHATASE 131 U/L (46-116); ALT/SGPT 157 U/L (7.0-40); AST/SGOT 99 U/L (<34); BILIRUBIN,TOTAL 0.3 MG/DL (0.3-1.2); BLOOD UREA NITROGEN 14 MG/DL (9-23); CALCIUM LEVEL 9.8 MG/DL (8.5-10.1); CARBON DIOXIDE LEVEL 32 MMOL/L (20-31); CHLORIDE LEVEL 102 MMOL/L (98-107); CREATININE FOR GFR 0.65 MG/DL (0.55-1.30); GLOMERULAR FILTRATION RATE > 60.0 (>60); GLUCOSE, FASTING 82 MG/DL (60-100); POTASSIUM SERUM 3.7 MMOL/L (3.5-5.1); SODIUM LEVEL 138 MMOL/L (136-145); TOTAL PROTEIN 8.2 G/DL (5.7-8.2)
[2024-06-26 22:18] LABS: HEPATITIS B SURF AB QUANT 7 mIU/mL (> OR = 10)
[2024-06-26 22:42] LABS: HEPATITIS A IgG TOTAL NON-REACTIVE (NON-REACTIVE); HEPATITIS B CORE ANTIBODY IGG NON-REACTIVE (NON-REACTIVE)
[2024-06-27 15:48] LABS: HCV LOG10 5.46 Log IU/mL (NOT DETECTED)
[2024-06-27 20:07] LABS: HEPATITIS C VIRUS GENOTYPE 3 (.)
[2024-06-30 17:02] LABS: HCV GENOTYPE 3
[2024-07-01 18:18] LABS: ALPHA 2-MACROGLOBULINS,QN 238 mg/dL (106-279); ALT (SGPT) P5P 104 U/L (6-29); APOLIPOPROTEIN A-1 182 mg/dL (101-198); BILIRUBIN, TOTAL 0.3 mg/dL (0.2-1.2); FIBROSIS SCORE 0.07; FIBROSIS STAGE NO FIBROSIS (F0); GGT 21 U/L (3-50); HAPTOGLOBIN 139 mg/dL (43-212); NECROINFLAM ACT GRADE MINIMAL ACTIVITY (A0)
== END ==
LOC: M LAB REF 16:12
PROVIDERS: ATTEND Family Medicine Addiction Medicine
DX: B19.20 Unspecified viral hepatitis C without hepatic coma (principal)

== ENCOUNTER 2025-03-30 08:17 | Emergency (ER) | payer MEDICAID, OTHER, SELFPAY ==
[~2025-03-30] VITALS: Ht 167.6 cm; Wt 53.4 kg
[2025-03-30 08:21] VITALS: BP 111/86; TEMP 97.6; O2SAT 100
== END 2025-03-30 12:14 | disposition left against medical advice (07) ==
LOC: M ED 08:17
DX: Z53.21 Procedure and treatment not carried out due to patient leaving prior to being seen by health care provider (principal)

== ENCOUNTER → 2025-05-09 | Outpatient (CLI) | payer MEDICAID, SELFPAY ==
[2025-05-09 17:14] LABS: ALT/SGPT 113 U/L (7.0-40); AST/SGOT 77 U/L (<34); CALCIUM LEVEL 9.3 MG/DL (8.5-10.1); CARBON DIOXIDE LEVEL 26 MMOL/L (20-31); CHLORIDE LEVEL 104 MMOL/L (98-107); CREATININE FOR GFR 0.65 MG/DL (0.55-1.30); GLOMERULAR FILTRATION RATE > 90.0 (>60); POTASSIUM SERUM 3.8 MMOL/L (3.5-5.1); SODIUM LEVEL 141 MMOL/L (136-145)
[2025-05-09 17:42] LABS: HIV 1&2 SCREEN NEGATIVE (NEGATIVE)
[2025-05-09 18:13] LABS: HCG, SERUM QUALITATIVE NEGATIVE (NEGATIVE)
== END ==
LOC: M LAB 15:48
PROVIDERS: ATTEND Emergency Medicine
DX: B18.2 Chronic viral hepatitis C (principal)